=== PATIENT | female | born 1965 | race African-American/Black ===

== ENCOUNTER → 2017-11-10 | Outpatient (CLI) | payer MEDICARE, MEDICAID ==
[~2017-11-10] MED LIST: AMLO5TAB4 PO; FOLI1TAB63 PO; LOSA25TA12 PO; OMEP20CA10 PO
== END | disposition home or self-care (01) ==
LOC: RAD 07:23
PROVIDERS: ATTEND Internal Medicine Nephrology
DX: R76.11 Nonspecific reaction to tuberculin skin test without active tuberculosis (principal); N18.6 End stage renal disease
CPT/HCPCS: 71045

== ENCOUNTER → 2018-04-25 | Outpatient (CLI) | payer MEDICARE, BC, OTHER, MEDICAID | END | disposition home or self-care (01) | LOC: CT 11:57 | PROVIDERS: ATTEND Internal Medicine Nephrology | DX: M84.459A Pathological fracture, hip, unspecified, initial encounter for fracture (principal); N25.0 Renal osteodystrophy; N19 Unspecified kidney failure | CPT/HCPCS: 73700 ==